=== PATIENT | female | born 1945 | race Caucasian/White ===

== ENCOUNTER 2018-01-13 07:28 | Emergency (ER) | payer MEDICARE ==
[~2018-01-13] VITALS: Ht 157.5 cm; Wt 62.1 kg
[2018-01-13] MEDS ORDERED: AMITRIPTYLINE HCL 10 MG (07:46)
[2018-01-13] MEDS ORDERED: ZETIA 10 MG PO (07:46)
[2018-01-13] MEDS ORDERED: EZETIMIBE 10 MG (07:46)
[2018-01-13] MEDS ORDERED: VALSARTAN 160 MG PO (07:46)
[2018-01-13] MEDS ORDERED: FLUV80TA PO (07:49)
[2018-01-13] MEDS ORDERED: RANI150C4 PO (07:49)
[2018-01-13] MEDS ORDERED: ASPI81TA31 PO (07:49)
[2018-01-13] MEDS ORDERED: EZET10TA13 PO (07:49)
--- NOTE | 2018-01-13 08:22 | NUR ---
Patient discharged to home in stable conditon. Written and verbal after care instructions given. Patient verbalizes understanding of instructions.
[2018-01-13 08:23] VITALS: BP 131/74
== END 2018-01-13 08:24 | disposition home or self-care (01) ==
LOC: ER 07:30
DX: S99.922A Unspecified injury of left foot, initial encounter (principal); L08.9 Local infection of the skin and subcutaneous tissue, unspecified; I10 Essential (primary) hypertension; Z88.0 Allergy status to penicillin; Z88.2 Allergy status to sulfonamides; Z79.82 Long term (current) use of aspirin; Z79.899 Other long term (current) drug therapy; X58.XXXA Exposure to other specified factors, initial encounter; Y93.89 Activity, other specified; Y92.89 Other specified places as the place of occurrence of the external cause; Y99.8 Other external cause status
CPT/HCPCS: A4663